=== PATIENT | female | born 1935 | race Caucasian/White ===

== ENCOUNTER → 2016-12-13 | Outpatient (CLI) | payer MEDICARE ==
--- NOTE | 2016-12-13 10:38 | RAD ---
EXAM DESCRIPTION: Hip, left 2 Views CLINICAL HISTORY: 81 yearsFemale, HIP PAIN COMPARISON: None. IMPRESSION: 2 views of the left hip demonstrate moderate changes of osteoarthritis with narrowing of the joint space and subchondral sclerosis in the acetabulum. Marginal osteophytes along the lateral aspect of the acetabulum. There is no evidence of acute fracture, dislocation, or destructive osseous lesion. Degenerative changes in the pubic symphysis and visualized left sacroiliac joint. Calcified phleboliths in the pelvis. Electronically signed by: Flaco Mcgarry MD 12/13/2016 10:37 AM CDT
--- NOTE | 2016-12-13 10:41 | RAD ---
EXAM DESCRIPTION: Knee, left Complete CLINICAL HISTORY: 81 yearsFemale, KNEE PAIN COMPARISON: None. IMPRESSION: 4 views of the left knee demonstrate no evidence of acute fracture, dislocation, or destructive osseous lesion. Severe changes of patellofemoral compartment osteoarthritis are demonstrated with complete loss of the joint space in the lateral aspect of the patellofemoral compartment. There is also moderate lateral patellar tilt and patellar subluxation. Smooth marginal osteophytes are demonstrated. More moderate changes of osteoarthritis in the lateral and medial tibiofemoral compartments. No evidence of a joint effusion. Scattered vascular calcifications. Electronically signed by: Flaco Mcgarry MD 12/13/2016 10:39 AM CDT
--- NOTE | 2016-12-13 11:02 | RAD ---
EXAM DESCRIPTION: Pelvis CLINICAL HISTORY: 81 yearsFemale, HIP PAIN COMPARISON: None. IMPRESSION: An AP view of the pelvis demonstrates no evidence of acute fracture, dislocation, or destructive osseous lesion. Moderate changes of osteoarthritis are demonstrated in both hips. Mild to moderate degenerative changes in the pubic symphysis and in both sacroiliac joints. Scattered calcified phleboliths throughout the pelvis. Scattered arterial vascular calcifications are also demonstrated. Electronically signed by: Flaco Mcgarry MD 12/13/2016 11:01 AM CDT
== END | disposition home or self-care (01) ==
LOC: RAD 08:01
PROVIDERS: ATTEND Orthopaedic Surgery
DX: M25.562 Pain in left knee (principal); M25.552 Pain in left hip

== ENCOUNTER → 2017-01-08 | Outpatient (CLI) | payer MEDICARE ==
--- NOTE | 2017-01-09 08:52 | RAD ---
EXAM DESCRIPTION: Chest,2 Views CLINICAL HISTORY: PRE OP COMPARISON: None TECHNIQUE: PA/lateral FINDINGS: The lungs are well expanded and clear. No infiltrates or effusions or masses are noted. The heart is normal in size and shape with no evidence of vascular congestion. The jamel and mediastinum demonstrate normal contours. The bony spine and chest wall is normal for age in appearance. IMPRESSION: Normal chest, two views Electronically signed by: Timmy Jay MD 01/09/2017 8:51 AM CDT
== END | disposition home or self-care (01) ==
LOC: YCFC.O 15:00
PROVIDERS: ATTEND Nurse Practitioner Family
DX: M17.12 Unilateral primary osteoarthritis, left knee (principal); Z01.818 Encounter for other preprocedural examination

== ENCOUNTER → 2017-01-19 | Outpatient (CLI) | payer MEDICARE | END | disposition home or self-care (01) | LOC: LAB.O 09:58 | PROVIDERS: ATTEND Orthopaedic Surgery | DX: M17.12 Unilateral primary osteoarthritis, left knee (principal); Z01.818 Encounter for other preprocedural examination; I45.10 Unspecified right bundle-branch block; Z13.6 Encounter for screening for cardiovascular disorders ==

== ENCOUNTER → 2017-02-16 | Day surgery (SDC) | payer MEDICARE ==
--- NOTE | 2017-01-29 09:41 | HP ---
CHIEF COMPLAINT: Left knee pain. HISTORY OF PRESENT ILLNESS: Grace is an 81-year-old female with a history of left knee pain that has been going on for years. She has had pain that has been getting progressively worse and now limits her daily activities. She has no specific trauma related to the onset of this and denies any radiation of pain pain. Because of her significant pain and ongoing worsening of this, she has requested operative intervention. After discussing the risks, benefits and alternatives to that, the patient has given informed consent. PAST SURGICAL HISTORY: None. MEDICATIONS: 1. Glimepiride. 2. Omeprazole. 3. Pioglitazone. 4. Tramadol. ALLERGIES: NO KNOWN DRUG ALLERGIES. CODE STATUS: Full code. IMMUNIZATIONS: Up to date. SOCIAL HISTORY: The patient does not drink, smoke or use any illicit drugs. FAMILY HISTORY: None pertinent to today's complaint. REVIEW OF SYSTEMS: Negative except as indicated in the History of Present Illness. PHYSICAL EXAMINATION: VITAL SIGNS: Blood pressure 142/66. Pulse 78. Height 5'7". Weight 180. MENTAL STATUS: The patient is awake, alert, and is able to give a good history and participate in the physical. The patient is oriented to person, place and time. SKIN: Normal tone and turgor. HEENT: Normocephalic, atraumatic. Pupils equal, round and reactive. Mucosal membranes are moist. NECK: Normal range of motion. No thyromegaly, no lymphadenopathy. CHEST: Normal respiratory excursion. CARDIAC: Regular rate and rhythm. No murmurs, rubs or gallops. MUSCULOSKELETAL: The bilateral upper extremities show full active range of motion without pain. She has intact sensation throughout. They are warm and well perfused. There is no deformity. The right hip shows full range of motion. She has intact sensation throughout. It is warm and well perfused. She walks with a slight antalgic gait secondary to pain on the left knee. The left knee shows pain diffusely and especially along the medial aspect of the knee. Sensation is intact throughout. It is warm and well perfused. She has no varus/valgus or anterior/posterior laxity. She does have a minor effusion. IMAGING: X-rays show advanced arthritis. ASSESSMENT: 1. Arthritis of the knee. PLAN: The plan at this point is for total knee arthroplasty. We have discussed the risks, benefits, and alternatives to that and the patient has given informed consent. [facility][id number]
[~2017-02-16] MED LIST: ACETAMINOPHEN 325 MG TAB PO PRN; ACETAMINOPHEN 500 MG TAB PO PRN; ACETAMINOPHEN IV 1000MG 0 ML ONE; ALUMINUM & MAGNESIUM HYDROXIDE 30 ML UD PO PRN; BENZOCAINE-MENTH LOZ (CEPACOL) 1 EA LOZ MT PRN; BISACODYL SUPPOSITORY 10 MG PR ONE; BISACODYL SUPPOSITORY 10 MG PR PRN; BUPIVACAINE 0.25% W/EPI 50 ML VIAL INJ ONE; CEFAZOLIN SODIUM 2 GRAMS IV 2 GM in PREMIX BAG 1 BAG IVPB SCH; CELECOXIB 100 MG CAP PO SCH; CYCLOBENZAPRINE HCL 10 MG TAB PO PRN; DEX 5% W/NACL 0.45% 1000ML 1,000 ML IVS PRN; DOCUSATE CALCIUM 240 MG CAP PO SCH; ELECTROLYTE-A 1,000 ML IVS ONE; ENOXAPARIN SODIUM 30 MG/0.3 ML SYG SUBCU SCH; HYDROcodone 5MG/APAP 325MG 1 EA TAB PO PRN; IV SET AND CAP CHANGE INJ INJ SCH; LACTATED RINGERS 1,000 ML ONE; LIDOCAINE 1% 10 ML VIAL INJ ONE; MAGNESIUM HYDROXIDE 30 ML UD PO ONE; MAGNESIUM HYDROXIDE 30 ML UD PO PRN; MAGNESIUM OXIDE 400 MG TAB PO SCH; MIDAZOLAM INJ 2 MG/2 ML VIAL ONE; MORPHINE PCA 1 MG/ML 100ML 1 BAG in PREMIX BAG 1 BAG IVPB SCH; MORPHINE SULFATE *EPIDURAL* 0.5 MG/ML VIAL ONE; MORPHINE SULFATE INJ 10 MG/ML VIAL IM PRN; MORPHINE SULFATE INJ 10 MG/ML VIAL IV PRN; NALOXONE HCL INJ 0.4 MG/ML VIAL IV PRN; NITROGLYCERIN/D5W IV 250 ML IVS ONE; NITROGLYCERIN/D5W IV 50,000 MCG in PREMIX BOTTLE 1 BOTTLE IVS SCH; ONDANSETRON INJ 4 MG/2 ML VIAL IV PRN; PROMETHAZINE HCL INJ 12.5 MG in SODIUM CHLORIDE 0.9% 50ML 50 ML IVPB PRN; PROMETHAZINE HCL INJ 25 MG in SODIUM CHLORIDE 0.9% 50ML 50 ML IVPB PRN; PROPOFOL 200 MG/20 ML VIAL IV ONE; SCOPOLAMINE PATCH 1.5MG 1 EA TD ONE; SODIUM CHL 0.9% 50ML MIN-BAG+ 50 ML IVPB ONE; SODIUM CHLORIDE 0.9% (FLUSH) 10 ML SYG IV PRN; SODIUM CHLORIDE 0.9% (FLUSH) 10 ML SYG IV SCH; SODIUM CHLORIDE 0.9% 100ML 100 ML IVPB ONE; SODIUM CHLORIDE 0.9% 250ML 250 ML ONE; TEMAZEPAM 15 MG CAP PO PRN; TRANEXAMIC ACID 1,000 MG/10 ML VIAL ONE; TRANEXAMIC ACID INJ 1,000 MG in SODIUM CHLORIDE 0.9% 100ML 100 ML IVPB ONE; VANCOMYCIN HCL INJ 1,000 MG VIAL IVPB ONE; VANCOMYCIN HCL INJ 1,000 MG in SODIUM CHLORIDE 0.9% 250ML 250 ML IVPB SCH; ZOLPIDEM TARTRATE 5 MG TAB PO PRN; ceFAZolin SODIUM 1 GM VIAL ONE; ceFAZolin SODIUM 1 GM in SODIUM CHL 0.9% 50ML MIN-BAG+ 50 ML IVPB SCH; fentaNYL CITRATE INJ 50 MCG/ML AMP ONE; traMADol HCL 50 MG TAB PO PRN
[2017-02-16 11:31] VITALS: BP 150/71; TEMP 96.5; O2SAT 99
--- NOTE | 2017-02-16 13:20 | DS ---
SUPERVISING PHYSICIAN: Hany Willingham MD DATE OF ADMISSION: 02/16/17 DATE OF DISCHARGE: 02/16/17 DISCHARGE DIAGNOSIS: 1. Preoperative electrocardiogram changes, mostly in the V leads with significant ST depression while undergoing anesthesia. 2. Arthritis of the left knee. 3. Diabetes. HISTORY OF PRESENT ILLNESS: This is an 81-year-old female patient who was admitted to the hospital this morning to have undergone left total knee arthroplasty per Dr. Jer Coleman, orthopedic surgeon. She was being anesthetized for her operative procedure and EKG changes were noted on the monitor with significant ST depression in mostly the V leads. I was called back to Surgery and after consultation with Dr. Mosquera as well as Dr. Welsh, senior it project manager, the operation was cancelled and the patient was sent to the Recovery Room where she was recovered enough that she could be transferred to [facility] in [place] to go to the [facility]. Dr. Welsh recommended she go to the [facility] most likely due to some left main blockage. I call [facility] 's transfer center and Dr. Block accepted transfer. Dr. Welsh was in touch with the [facility] as well as the jewelry consultant director of regional sales. Initially, Dr. Welsh had asked us to place her on a heparin cardiology protocol as well as nitroglycerin drip. The patient had a spinal for anesthesia at about 9 AM, so it was decided not to put her on heparin at this time and she was started on a Tridil to bring her pressure down. While undergoing anesthesia, her systolic blood pressure dropped to the 90s, but while she was in her normal sinus rhythm, her systolic blood pressures were in the 150s. She does not have a senior it project manager, nor is she treated for hypertension. DISCHARGE PLAN: The patient will be discharged to [facility]. Dr. Block accepted the patient. She was placed on a Tridil drip. All her records and labs and tests were copied and sent with her. She went by ground EMS to room 730 at [facility]. She is to followup with her primary care physician giovanni Coleman after cardiac intervention. I consulted with her family at length and they understand what is going. She will be discharged in fair condition. DISCHARGE MEDICATIONS: 1. Actos. 2. Glipizide. 3. Prilosec. Dr. Willingham is the collaborating physician and available for consultation. [facility][id number] [facility]
== END | disposition short-term general hospital (02) ==
LOC: AMB 08:00
PROVIDERS: ATTEND Orthopaedic Surgery
DX: M17.12 Unilateral primary osteoarthritis, left knee (principal); E11.9 Type 2 diabetes mellitus without complications; Z79.899 Other long term (current) drug therapy; K21.9 Gastro-esophageal reflux disease without esophagitis; Z53.9 Procedure and treatment not carried out, unspecified reason
CPT/HCPCS: 36415; 36416; 80048; 80053; 81001; 82550; 82553; 82948; 83735; 84484; 85025; 85610; 85730; 86850; 86900; 86901; 87070; 93005; J0690; J2250; J2274; J3010; J3370; J3490; J7050; J7120